=== PATIENT | male | born 1995 | race African-American/Black ===

== ENCOUNTER 2019-07-06 19:13 | Emergency (ER) | payer OTHER ==
[~2019-07-06] VITALS: Ht 180.3 cm; Wt 61.2 kg
[2019-07-06 19:13] VITALS: Ht 180.3 cm; Wt 61.2 kg
[2019-07-06 22:04] VITALS: BP 131/90
== END 2019-07-06 22:04 | disposition home or self-care (01) ==
LOC: ED 19:13
DX: S92.502A Displaced unspecified fracture of left lesser toe(s), initial encounter for closed fracture (principal); S71.102A Unspecified open wound, left thigh, initial encounter; S00.81XA Abrasion of other part of head, initial encounter; S80.212A Abrasion, left knee, initial encounter; S80.211A Abrasion, right knee, initial encounter; W34.00XA Accidental discharge from unspecified firearms or gun, initial encounter; Y93.89 Activity, other specified; Y92.89 Other specified places as the place of occurrence of the external cause; Y99.8 Other external cause status
CPT/HCPCS: 90715; J0696; J2270; J2405; Q0092